=== PATIENT | male | born 1985 | race African-American/Black ===

== ENCOUNTER 2016-11-24 00:50 | Emergency (ER) | payer MEDICAID ==
[~2016-11-24] VITALS: Ht 165.1 cm; Wt 102.0 kg
[2016-11-24 09:05] VITALS: BP 133/80
== END 2016-11-24 11:14 | disposition home or self-care (01) ==
LOC: ER 10:02
DX: G40.909 Epilepsy, unspecified, not intractable, without status epilepticus (principal); R79.1 Abnormal coagulation profile; E11.9 Type 2 diabetes mellitus without complications; M25.562 Pain in left knee; J45.909 Unspecified asthma, uncomplicated; F17.200 Nicotine dependence, unspecified, uncomplicated
CPT/HCPCS: 36415; 80185; 82962; 99283; Z7610

== ENCOUNTER 2017-01-04 01:35 | Emergency (ER) | payer MEDICAID ==
[~2017-01-04] VITALS: Ht 165.1 cm; Wt 106.0 kg
[2017-01-04] MEDS ORDERED: ALBUTEROL (0.083%) 2.5MG/3ML NEB HHN STA (03:53)
[2017-01-04] MEDS ORDERED: IPRATROPIUM BROMIDE (0.02%) 0.5MG/2.5ML NEB HHN STA (03:53)
[2017-01-04 05:48] VITALS: BP 121/62
== END 2017-01-04 06:18 | disposition home or self-care (01) ==
LOC: ER 01:35
DX: R06.02 Shortness of breath (principal); R56.9 Unspecified convulsions; E11.9 Type 2 diabetes mellitus without complications; J45.909 Unspecified asthma, uncomplicated
CPT/HCPCS: 71010; 94640; 99283; J7611; Z7610

== ENCOUNTER 2017-03-02 02:02 | Emergency (ER) | payer MEDICAID ==
[~2017-03-02] VITALS: Ht 175.3 cm; Wt 104.0 kg
[2017-03-02] MEDS ORDERED: LEVETIRACETAM 500MG PREMIX 100 ML IV ONE (03:15)
[2017-03-02 03:28] LABS: BASOPHILS % 0.6 % (0.0-2.0); EOSINOPHILS % 1.8 % (0.0-5.0); LYMPHOCYTES % 32.1 % (20.0-50.0); MEAN CORPUSCULAR HEMOGLOBIN 29.9 pg (28.0-32.0); MEAN CORPUSCULAR VOLUME 89.6 fL (80.0-94.0); MEAN PLATELET VOLUME 7.5 fl (7.4-10.4); MONOCYTES % 9.3 % (2.0-8.0); NEUTROPHILS % 56.2 % (40.0-76.0); PLATELET 267 x1000/uL (130-400); RED BLOOD CELL COUNT 4.69 mill/uL (4.7-6.1); RED CELL DISTRIBUTION WIDTH 13.4 % (11.6-14.6)
[2017-03-02 03:44] LABS: CARBON DIOXIDE 25 mEq/L (21-32); CHLORIDE 108 mEq/L (98-107)
[2017-03-02] MEDS ORDERED: PHENYTOIN SODIUM 1,000 MG in SODIUM CHLORIDE 0.9% 100 ML IV ONE (04:00)
[2017-03-02 10:24] VITALS: BP 105/56
== END 2017-03-02 10:42 | disposition home or self-care (01) ==
LOC: ER 02:32
DX: R56.9 Unspecified convulsions (principal); J45.909 Unspecified asthma, uncomplicated; F17.200 Nicotine dependence, unspecified, uncomplicated; E11.9 Type 2 diabetes mellitus without complications; Z91.14 Patient's other noncompliance with medication regimen
CPT/HCPCS: 36415; 80053; 80185; 82962; 85025; 96365; 96366; 96367; 99285; J1165; J1953; J7050